=== PATIENT | female | born 1955 | race Caucasian/White ===

== ENCOUNTER 2021-03-06 12:45 | Emergency (ER) | payer MEDICARE, OTHER, SELFPAY ==
[~2021-03-06] VITALS: Ht 162.6 cm; Wt 49.4 kg
[2021-03-06] MEDS ORDERED: LISI-170 PO (12:52)
[2021-03-06] MEDS ORDERED: KETOROLAC 30 MG/1 ML ONE (13:20)
[2021-03-06] MEDS ORDERED: METHOCARBAMOL 500 MG TABLET ONE (13:20)
--- NOTE | 2021-03-06 13:26 | NUR ---
REPORT FROM APRYL MENDOZA. PT MEDICATED PER EMAR, PT RESTING IN [facility] AT THIS TIME, WCTM.
[2021-03-06] MEDS ORDERED: KETOROLAC 30 MG/1 ML IM ONE (13:30)
[2021-03-06] MEDS ORDERED: METHOCARBAMOL 500 MG TABLET PO ONE (13:30)
--- NOTE | 2021-03-06 14:13 | NUR ---
PT TO CT AT THIS TIME VIA [facility].
[2021-03-06] MEDS ORDERED: HYDROcodone/APAP 5/325 TABLET ONE (14:21)
[2021-03-06] MEDS ORDERED: HYDROcodone/APAP 5/325 TABLET PO ONE (15:00)
[2021-03-06 15:08] VITALS: BP 145/84
== END 2021-03-06 15:17 | disposition home or self-care (01) ==
LOC: ED 14:36
DX: M47.812 Spondylosis without myelopathy or radiculopathy, cervical region (principal); M50.221 Other cervical disc displacement at C4-C5 level
CPT/HCPCS: 72125; 96372; 99284; J1885